=== PATIENT | female | born 1955 | race Caucasian/White ===

== ENCOUNTER → 2017-01-17 | Outpatient (CLI) | payer OTHER ==
[~2017-01-17] MED LIST: 'TENORMIN50 MG PO; BAYER ASPIRIN C81 MG PO; CORDROL20 MG PO; CYMBALTA PO; LEVAQUIN750 MG PO; NEXIUM40 MG PO; PERCOCET 325 MG1 TA6 PO; PRAVACHOL10 MG; PROTONIX20 MG PO; TESSALON PERLE200 MG PO; VICODIN 5/500 505 MG PO; VICODIN 500 MG-1 TAB PO; ZETIA10 MG PO; ZITHROMAX250 MG PO; ZOFRAN ODT4 MG SL
== END | disposition home or self-care (01) ==
LOC: RAD 14:31
DX: M25.551 Pain in right hip (principal)

== ENCOUNTER → 2017-03-27 | Outpatient (CLI) | payer OTHER ==
[2017-03-27 11:55] LABS: HEMATOCRIT 41.5 % (37.0-47.0); HEMOGLOBIN 13.9 g/dl (12.0-16.0); LYMPH # 1.1 10*3/uL (1.3-4.4); LYMPH % 21.5 % (27.0-41.0); MEAN CELL VOLUME 89.6 fl (81.0-99.0); MEAN CORPUSCULAR HGB CONC 33.5 g/dl (33.0-37.0); MEAN PLATELET VOLUME 8.9 fl (9.6-12.3); MONO # 0.4 10*3/uL (0.1-1.0); MONO % 8.3 % (3.0-9.0); NEUT # 3.7 10*3/uL (2.3-7.9); PLATELET COUNT AUTOMATED 267 10*3/uL (130-400); RED BLOOD COUNT 4.63 10*6/uL (4.10-5.10); RED CELL DISTRI WIDTH 12.4 % (0-14.5); WHITE BLOOD COUNT 5.3 10*3/uL (4.8-10.8)
[2017-03-27 12:25] LABS: ALBUMIN 4.1 gm/dl (3.1-4.5); ALKALINE PHOSPHATASE 82 U/L (45-117); BUN 15 mg/dl (7-24); CHLORIDE 107 mmol/L (98-107); CHOLESTEROL 288 mg/dL (<200); FREE T4 0.81 ng/dl (0.76-1.46); HDL CHOLESTEROL 95 mg/dl (40-60); LDL CHOLESTEROL 168 mg/dL (9-159); POTASSIUM 4.2 mmol/L (3.5-5.1); SGOT/AST 19 IU/L (3-35); SGPT/ALT 31 U/L (12-78); SODIUM 141 mmol/L (136-145); TOTAL PROTEIN 7.6 gm/dL (6.4-8.2); TRIGLYCERIDES 126 mg/dl (<150); VLDL CHOLESTEROL 25 mg/dL (6-40)
[2017-03-27 12:45] LABS: VITAMIN D, 25-HYDROXY 36.7 ng/mL (30-100)
== END | disposition home or self-care (01) ==
LOC: LAB 11:30
PROVIDERS: Internal Medicine
DX: Z13.220 Encounter for screening for lipoid disorders (principal); Z13.21 Encounter for screening for nutritional disorder; Z13.1 Encounter for screening for diabetes mellitus; G47.411 Narcolepsy with cataplexy; R53.81 Other malaise; E55.9 Vitamin D deficiency, unspecified; E78.00 Pure hypercholesterolemia, unspecified

== ENCOUNTER → 2017-04-07 | Outpatient (CLI) | payer OTHER | END | disposition home or self-care (01) | LOC: CT 08:45 | DX: R91.8 Other nonspecific abnormal finding of lung field (principal); Z85.528 Personal history of other malignant neoplasm of kidney; Z90.710 Acquired absence of both cervix and uterus; Z90.5 Acquired absence of kidney ==

== ENCOUNTER → 2017-06-09 | Outpatient (CLI) | payer OTHER | LOC: MAMMO 06-01 08:00 | DX: Z12.31 Encounter for screening mammogram for malignant neoplasm of breast (principal) ==

== ENCOUNTER → 2018-03-25 | Outpatient (CLI) | payer OTHER ==
[2018-03-25 14:37] LABS: CREATININE 0.92 mg/dL (0.55-1.02)
== END | disposition home or self-care (01) ==
LOC: LAB 13:53
PROVIDERS: Internal Medicine
DX: C64.9 Malignant neoplasm of unspecified kidney, except renal pelvis (principal)

== ENCOUNTER → 2018-03-26 | Outpatient (CLI) | payer OTHER | END | disposition home or self-care (01) | LOC: CT 01:38 | DX: C64.9 Malignant neoplasm of unspecified kidney, except renal pelvis (principal) ==

== ENCOUNTER → 2018-09-30 | Outpatient (CLI) | payer OTHER ==
[~2018-09-30] MED LIST changes: +KEFLEX500 M1 PO
== END | disposition home or self-care (01) ==
LOC: MAMMO 12:55
DX: Z13.9 Encounter for screening, unspecified (principal); Z12.31 Encounter for screening mammogram for malignant neoplasm of breast; R92.8 Other abnormal and inconclusive findings on diagnostic imaging of breast; M85.89 Other specified disorders of bone density and structure, multiple sites; Z90.710 Acquired absence of both cervix and uterus

== ENCOUNTER → 2018-11-03 | Outpatient (CLI) | payer OTHER | END | disposition home or self-care (01) | LOC: RAD 13:53 | DX: M47.817 Spondylosis without myelopathy or radiculopathy, lumbosacral region (principal) ==

== ENCOUNTER 2019-03-14 12:02 | Emergency (ER) | payer OTHER, MEDICAID ==
[~2019-03-14] VITALS: Ht 172.7 cm; Wt 72.1 kg
[2019-03-14 12:04] VITALS: BP 154/80
== END 2019-03-14 13:56 | disposition home or self-care (01) ==
LOC: ED 12:02
DX: S62.92XA Unspecified fracture of left hand, initial encounter for closed fracture (principal); S80.212A Abrasion, left knee, initial encounter; Z79.899 Other long term (current) drug therapy; Z90.710 Acquired absence of both cervix and uterus; Z79.82 Long term (current) use of aspirin; W01.198A Fall on same level from slipping, tripping and stumbling with subsequent striking against other object, initial encounter; Y93.01 Activity, walking, marching and hiking; Y92.89 Other specified places as the place of occurrence of the external cause; Y99.9 Unspecified external cause status

== ENCOUNTER → 2019-04-26 | Outpatient (CLI) | payer OTHER, MEDICAID ==
[2019-04-26 10:21] LABS: HEMATOCRIT 37.8 % (37.0-47.0); HEMOGLOBIN 12.9 g/dl (12.0-16.0); LYMPH # 1.3 10*3/uL (1.3-4.4); LYMPH % 26.9 % (27.0-41.0); MEAN CELL VOLUME 90.2 fl (81.0-99.0); MEAN CORPUSCULAR HGB 30.8 pg (27.0-31.0); MEAN CORPUSCULAR HGB CONC 34.1 g/dl (33.0-37.0); MEAN PLATELET VOLUME 9.1 fl (9.6-12.3); MONO # 0.3 10*3/uL (0.1-1.0); MONO % 7.1 % (3.0-9.0); NEUT # 3.2 10*3/uL (2.3-7.9); NEUT % 65.8 % (47.0-73.0); PLATELET COUNT AUTOMATED 250 10*3/uL (130-400); RED BLOOD COUNT 4.19 10*6/uL (4.10-5.10); RED CELL DISTRI WIDTH 12.1 % (0-14.5); WHITE BLOOD COUNT 4.8 10*3/uL (4.8-10.8)
[2019-04-26 11:01] LABS: ALKALINE PHOSPHATASE 64 U/L (45-117); BUN 23 mg/dl (7-24); CHLORIDE 105 mmol/L (98-107); CHOLESTEROL 241 mg/dL (<200); CREATININE 0.96 mg/dL (0.55-1.02); FREE T4 0.69 ng/dl (0.76-1.46); HDL CHOLESTEROL 86 mg/dl (40-60); LDL CHOLESTEROL 129 mg/dL (9-159); SGOT/AST 16 IU/L (3-35); SGPT/ALT 30 U/L (12-78); SODIUM 139 mmol/L (136-145); TOTAL PROTEIN 7.2 gm/dL (6.4-8.2); TRIGLYCERIDES 132 mg/dl (<150); VLDL CHOLESTEROL 26 mg/dL (6-40)
[2019-04-26 11:07] LABS: VITAMIN D, 25-HYDROXY 39.2 ng/mL (30-100)
== END | disposition home or self-care (01) ==
LOC: LAB 09:53
PROVIDERS: Internal Medicine
DX: Z13.1 Encounter for screening for diabetes mellitus (principal); G47.419 Narcolepsy without cataplexy; I10 Essential (primary) hypertension; E78.2 Mixed hyperlipidemia; E55.9 Vitamin D deficiency, unspecified

== ENCOUNTER → 2019-07-21 | Outpatient (CLI) | payer OTHER, MEDICAID | END | disposition home or self-care (01) | LOC: RAD 11:15 | DX: M19.042 Primary osteoarthritis, left hand (principal) ==

== ENCOUNTER → 2019-11-02 | Outpatient (CLI) | payer MEDICARE | END | disposition home or self-care (01) | LOC: MAMMO 14:30 | DX: Z12.31 Encounter for screening mammogram for malignant neoplasm of breast (principal) ==

== ENCOUNTER 2020-03-16 07:14 | Emergency (ER) | payer MEDICARE ==
[~2020-03-16] VITALS: Ht 172.7 cm; Wt 73.9 kg
[2020-03-16 07:23] VITALS: BP 150/51
[2020-03-16] MEDS ORDERED: VOLTAREN100 GM T (11:38)
[2020-03-16] MEDS ORDERED: TYLENOL325 M1 PO (11:38)
[2020-03-16] MEDS ORDERED: NAPROSYN500 MG PO (11:38)
== END 2020-03-16 11:45 | disposition home or self-care (01) ==
LOC: ED 07:14
DX: S32.10XA Unspecified fracture of sacrum, initial encounter for closed fracture (principal); X58.XXXA Exposure to other specified factors, initial encounter; Y93.89 Activity, other specified; Y92.89 Other specified places as the place of occurrence of the external cause; Y99.8 Other external cause status

== ENCOUNTER → 2020-03-17 | Outpatient (CLI) | payer MEDICARE ==
[~2020-03-17] MED LIST changes: +NAPROSYN500 MG PO; +TYLENOL325 M1 PO; +VOLTAREN100 GM T
[2020-03-17 08:19] LABS: BASO % 0.2 % (0.0-1.0); EOS % 0.3 % (1.0-4.0); HEMATOCRIT 36.2 % (37.0-47.0); LYMPH # 1.5 10*3/uL (1.3-4.4); LYMPH % 24.5 % (27.0-41.0); MEAN CELL VOLUME 90.7 fl (81.0-99.0); MEAN CORPUSCULAR HGB 29.8 pg (27.0-31.0); MEAN CORPUSCULAR HGB CONC 32.9 g/dl (33.0-37.0); MEAN PLATELET VOLUME 8.8 fl (9.6-12.3); MONO # 0.5 10*3/uL (0.1-1.0); MONO % 7.8 % (3.0-9.0); NEUT # 3.9 10*3/uL (2.3-7.9); NEUT % 66.5 % (47.0-73.0); PLATELET COUNT AUTOMATED 300 10*3/uL (130-400); RED BLOOD COUNT 3.99 10*6/uL (4.10-5.10); RED CELL DISTRI WIDTH 12.7 % (0-14.5); WHITE BLOOD COUNT 5.9 10*3/uL (4.8-10.8)
[2020-03-17 08:34] LABS: ALBUMIN 3.6 gm/dl (3.1-4.5); BUN 20 mg/dl (7-24); CHLORIDE 105 mmol/L (98-107); CREATININE 0.84 mg/dL (0.55-1.02); POTASSIUM 4.1 mmol/L (3.5-5.1); SODIUM 138 mmol/L (136-145)
== END | disposition home or self-care (01) ==
LOC: LAB 07:32
PROVIDERS: ATTEND Internal Medicine Nephrology
DX: E87.6 Hypokalemia (principal); C64.9 Malignant neoplasm of unspecified kidney, except renal pelvis

== ENCOUNTER → 2020-03-19 | Outpatient (CLI) | payer MEDICARE | END | disposition home or self-care (01) | LOC: LAB 01:03 → CT 01:03 | PROVIDERS: ATTEND Internal Medicine Nephrology | DX: C64.9 Malignant neoplasm of unspecified kidney, except renal pelvis (principal); Z98.890 Other specified postprocedural states ==

== ENCOUNTER → 2020-04-09 | Outpatient (CLI) | payer MEDICARE | END | disposition home or self-care (01) | LOC: MRI 10:36 | PROVIDERS: ATTEND Internal Medicine | DX: M75.101 Unspecified rotator cuff tear or rupture of right shoulder, not specified as traumatic (principal); M19.011 Primary osteoarthritis, right shoulder; M77.8 Other enthesopathies, not elsewhere classified; M25.411 Effusion, right shoulder ==

== ENCOUNTER → 2020-06-19 | Outpatient (CLI) | payer MEDICARE | END | disposition home or self-care (01) | LOC: RAD 14:37 | PROVIDERS: ATTEND Internal Medicine | DX: J44.9 Chronic obstructive pulmonary disease, unspecified (principal) ==

== ENCOUNTER → 2020-06-20 | Outpatient (CLI) | payer MEDICARE | END | disposition home or self-care (01) | LOC: COVID19 13:04 | PROVIDERS: ATTEND Internal Medicine | DX: Z20.828 Contact with and (suspected) exposure to other viral communicable diseases (principal); R05 Cough ==

== ENCOUNTER → 2020-09-25 | Outpatient (CLI) | payer MEDICARE ==
[2020-09-25 11:17] LABS: HEMATOCRIT 38.1 % (37.0-47.0); LYMPH # 1.4 10*3/uL (1.3-4.4); LYMPH % 30.8 % (27.0-41.0); MEAN CELL VOLUME 94.3 fl (81.0-99.0); MEAN CORPUSCULAR HGB 31.4 pg (27.0-31.0); MEAN CORPUSCULAR HGB CONC 33.3 g/dl (33.0-37.0); MEAN PLATELET VOLUME 8.8 fl (9.6-12.3); MONO # 0.3 10*3/uL (0.1-1.0); MONO % 6.9 % (3.0-9.0); NEUT # 2.9 10*3/uL (2.3-7.9); NEUT % 61.9 % (47.0-73.0); PLATELET COUNT AUTOMATED 235 10*3/uL (130-400); RED BLOOD COUNT 4.04 10*6/uL (4.10-5.10); RED CELL DISTRI WIDTH 12.8 % (0-14.5); WHITE BLOOD COUNT 4.6 10*3/uL (4.8-10.8)
[2020-09-25 11:51] LABS: ALBUMIN 3.6 gm/dl (3.1-4.5); ALKALINE PHOSPHATASE 58 U/L (45-117); BUN 16 mg/dl (7-24); CHLORIDE 107 mmol/L (98-107); CHOLESTEROL 280 mg/dL (<200); FREE T4 0.73 ng/dl (0.76-1.46); HDL CHOLESTEROL 104 mg/dl (40-60); LDL CHOLESTEROL 153 mg/dL (9-159); POTASSIUM 3.8 mmol/L (3.5-5.1); SGOT/AST 14 IU/L (3-35); SGPT/ALT 28 U/L (12-78); SODIUM 142 mmol/L (136-145); TOTAL PROTEIN 6.7 gm/dL (6.4-8.2); TRIGLYCERIDES 113 mg/dl (<150); VLDL CHOLESTEROL 23 mg/dL (6-40)
[2020-09-25 11:56] LABS: THYROID STIM HORMONE (HS) 0.811 uIU/ml (0.358-4.75)
[2020-09-25 12:32] LABS: VITAMIN D, 25-HYDROXY 47.2 ng/mL (30-100)
== END | disposition home or self-care (01) ==
LOC: LAB 10:38
PROVIDERS: ATTEND Internal Medicine
DX: Z00.01 Encounter for general adult medical examination with abnormal findings (principal); I10 Essential (primary) hypertension; E78.2 Mixed hyperlipidemia; E55.9 Vitamin D deficiency, unspecified

== ENCOUNTER → 2020-12-31 | Outpatient (CLI) | payer MEDICARE | END | disposition home or self-care (01) | LOC: MAMMO 12-17 14:00 | PROVIDERS: ATTEND Internal Medicine | DX: Z12.31 Encounter for screening mammogram for malignant neoplasm of breast (principal); N64.89 Other specified disorders of breast ==

== ENCOUNTER → 2021-02-19 | Outpatient (CLI) | payer MEDICARE ==
[2021-02-19 14:02] LABS: BASO % 0.2 % (0.0-1.0); HEMATOCRIT 37.5 % (37.0-47.0); LYMPH # 1.2 10*3/uL (1.3-4.4); LYMPH % 21.3 % (27.0-41.0); MEAN CELL VOLUME 93.1 fl (81.0-99.0); MEAN CORPUSCULAR HGB CONC 33.3 g/dl (33.0-37.0); MEAN PLATELET VOLUME 9.1 fl (9.6-12.3); MONO # 0.4 10*3/uL (0.1-1.0); MONO % 7.4 % (3.0-9.0); NEUT # 3.8 10*3/uL (2.3-7.9); NEUT % 70.7 % (47.0-73.0); PLATELET COUNT AUTOMATED 281 10*3/uL (130-400); RED BLOOD COUNT 4.03 10*6/uL (4.10-5.10); RED CELL DISTRI WIDTH 12.7 % (0-14.5); WHITE BLOOD COUNT 5.4 10*3/uL (4.8-10.8)
[2021-02-19 14:16] LABS: ACT PARTIAL THROMBO TIME 24.4 SECONDS (20.0-32.1)
== END | disposition home or self-care (01) ==
LOC: LAB 13:35
PROVIDERS: ATTEND Internal Medicine
DX: N93.9 Abnormal uterine and vaginal bleeding, unspecified (principal); D68.8 Other specified coagulation defects

== ENCOUNTER 2021-04-27 13:03 | Emergency (ER) | payer MEDICARE ==
[~2021-04-27] VITALS: Ht 172.7 cm; Wt 73.5 kg
[2021-04-27 13:23] VITALS: BP 142/71
[2021-04-27] MEDS ORDERED: MEDROL DOSEPAK4 MG PO (14:15)
== END 2021-04-27 14:38 | disposition home or self-care (01) ==
LOC: ED 13:03
DX: J30.81 Allergic rhinitis due to animal (cat) (dog) hair and dander (principal)

== ENCOUNTER → 2021-10-18 | Outpatient (CLI) | payer MEDICARE ==
[~2021-10-18] MED LIST changes: +MEDROL DOSEPAK4 MG PO
[2021-10-18 10:47] LABS: HEMATOCRIT 39.7 % (37.0-47.0); LYMPH # 1.7 10*3/uL (1.3-4.4); LYMPH % 38.3 % (27.0-41.0); MEAN CELL VOLUME 89.6 fl (81.0-99.0); MEAN CORPUSCULAR HGB 30.2 pg (27.0-31.0); MEAN CORPUSCULAR HGB CONC 33.8 g/dl (33.0-37.0); MEAN PLATELET VOLUME 9.1 fl (9.6-12.3); MONO # 0.4 10*3/uL (0.1-1.0); MONO % 9.5 % (3.0-9.0); NEUT # 2.3 10*3/uL (2.3-7.9); PLATELET COUNT AUTOMATED 256 10*3/uL (130-400); RED BLOOD COUNT 4.43 10*6/uL (4.10-5.10); RED CELL DISTRI WIDTH 11.8 % (0-14.5); WHITE BLOOD COUNT 4.4 10*3/uL (4.8-10.8)
[2021-10-18 11:04] LABS: ALKALINE PHOSPHATASE 77 U/L (45-117); BUN 15 mg/dl (7-24); CHLORIDE 104 mmol/L (98-107); CHOLESTEROL 236 mg/dL (<200); CREATININE 0.91 mg/dL (0.55-1.02); FREE T4 0.73 ng/dl (0.76-1.46); LDL CHOLESTEROL 110 mg/dL (9-159); SGOT/AST 21 IU/L (3-35); SGPT/ALT 29 U/L (12-78); SODIUM 139 mmol/L (136-145); T3 UPTAKE 34 % (31-39); TOTAL PROTEIN 7.4 gm/dL (6.4-8.2); TRIGLYCERIDES 178 mg/dl (<150)
[2021-10-18 12:08] LABS: VITAMIN D, 25-HYDROXY 48.4 ng/mL (30-100)
== END | disposition home or self-care (01) ==
LOC: LAB 10:23
PROVIDERS: ATTEND Internal Medicine
DX: Z13.1 Encounter for screening for diabetes mellitus (principal); Z13.89 Encounter for screening for other disorder; E55.9 Vitamin D deficiency, unspecified; I10 Essential (primary) hypertension; E78.2 Mixed hyperlipidemia

== ENCOUNTER → 2022-02-18 | Outpatient (CLI) | payer MEDICARE | END | disposition home or self-care (01) | LOC: RAD 01-30 14:00 | PROVIDERS: ATTEND Internal Medicine | DX: Z13.820 Encounter for screening for osteoporosis (principal); Z78.0 Asymptomatic menopausal state ==

== ENCOUNTER → 2022-05-05 | Outpatient (CLI) | payer MEDICARE ==
[2022-05-05 10:18] LABS: HEMATOCRIT 36.9 % (37.0-47.0); LYMPH # 1.6 10*3/uL (1.3-4.4); LYMPH % 33.1 % (27.0-41.0); MEAN CELL VOLUME 92.3 fl (81.0-99.0); MEAN CORPUSCULAR HGB CONC 33.6 g/dl (33.0-37.0); MEAN PLATELET VOLUME 8.9 fl (9.6-12.3); MONO # 0.4 10*3/uL (0.1-1.0); MONO % 7.4 % (3.0-9.0); NEUT # 2.9 10*3/uL (2.3-7.9); NEUT % 59.3 % (47.0-73.0); PLATELET COUNT AUTOMATED 244 10*3/uL (130-400); RED CELL DISTRI WIDTH 12.2 % (0-14.5); WHITE BLOOD COUNT 4.9 10*3/uL (4.8-10.8)
[2022-05-05 10:21] LABS: BILIRUBIN Negative (Negative); BLOOD 1+ (Negative); CLARITY Clear (Clear); COLOR Yellow (Yellow); GLUCOSE Negative (Negative); KETONE Negative (Negative); LEUKO ESTERASE 2+ (Negative); NITRITE Negative (Negative); UROBILINOGEN 0.2 E.U./dl (0.0-1.0)
[2022-05-05 10:43] LABS: BUN 16 mg/dl (7-24); CHLORIDE 108 mmol/L (98-107); POTASSIUM 3.8 mmol/L (3.5-5.1); SODIUM 140 mmol/L (136-145)
[2022-05-05 10:44] LABS: URINE CREATININE RANDOM 69.6 mg/dL
[2022-05-05 11:09] LABS: BACTERIA TRACE; WBC 16-20 wbc/hpf (0-5)
== END | disposition home or self-care (01) ==
LOC: LAB 09:52
PROVIDERS: ATTEND Internal Medicine Nephrology
DX: C64.9 Malignant neoplasm of unspecified kidney, except renal pelvis (principal); E87.6 Hypokalemia

== ENCOUNTER → 2022-06-03 | Outpatient (CLI) | payer MEDICARE | END | disposition home or self-care (01) | LOC: CT 10:57 | PROVIDERS: ATTEND Internal Medicine Nephrology | DX: C64.9 Malignant neoplasm of unspecified kidney, except renal pelvis (principal); Z90.5 Acquired absence of kidney ==

== ENCOUNTER → 2022-07-21 | Outpatient (CLI) | payer MEDICARE | END | disposition home or self-care (01) | LOC: MAMMO 04:02 | PROVIDERS: ATTEND Internal Medicine | DX: Z12.31 Encounter for screening mammogram for malignant neoplasm of breast (principal) ==

== ENCOUNTER → 2022-09-25 | Outpatient (CLI) | payer MEDICARE | END | disposition home or self-care (01) | LOC: US 15:00 | PROVIDERS: ATTEND Internal Medicine | DX: R60.0 Localized edema (principal) ==

== ENCOUNTER → 2022-10-13 | Outpatient (CLI) | payer MEDICARE ==
[~2022-10-13] MED LIST changes: +ASPIRIN CHILDRE81 MG PO; +DULOXETINE HCL60 MG PO; +FUROSEMIDE40 MG PO; +HYDROCHLOROTH12.5 M2 PO; +LIPITOR20 MG PO; +MELOXICAM7.5 MG PO; +METOPROLOL SUC100 M1 PO; +NORVASC5 MG PO; +ONDANSETRON HYDR8 MG PO; +OXYCODONE-ACET1 EACH PO; +PRAVASTATIN SOD80 MG PO; +ROPINIROLE HYDRO1 MG PO; +TENORMIN100 MG PO
[2022-10-13 10:00] LABS: HEMATOCRIT 36.7 % (37.0-47.0); LYMPH # 1.6 10*3/uL (1.3-4.4); LYMPH % 33.1 % (27.0-41.0); MEAN CELL VOLUME 88.4 fl (81.0-99.0); MEAN CORPUSCULAR HGB 29.4 pg (27.0-31.0); MEAN CORPUSCULAR HGB CONC 33.2 g/dl (33.0-37.0); MONO # 0.4 10*3/uL (0.1-1.0); MONO % 8.3 % (3.0-9.0); NEUT # 2.8 10*3/uL (2.3-7.9); NEUT % 58.4 % (47.0-73.0); PLATELET COUNT AUTOMATED 231 10*3/uL (130-400); RED BLOOD COUNT 4.15 10*6/uL (4.10-5.10); RED CELL DISTRI WIDTH 12.3 % (0-14.5); WHITE BLOOD COUNT 4.8 10*3/uL (4.8-10.8)
[2022-10-13 10:53] LABS: ALKALINE PHOSPHATASE 60 U/L (46-116); BUN 15 mg/dl (9-23); CHLORIDE 105 mmol/L (98-107); CHOLESTEROL 220 mg/dL (<200); LDL CHOLESTEROL 124 mg/dL (9-159); SGPT/ALT 16 U/L (10-49); T3 UPTAKE 22.1 % (22.4-36.7); THYROID STIM HORMONE (HS) 1.552 uIU/ml (0.550-4.780); THYROXINE (T4) TOTAL 3.8 ug/dl (4.5-10.9); TOTAL PROTEIN 6.3 gm/dL (6.0-8.0); TRIGLYCERIDES 145 mg/dl (<150)
[2022-10-14 12:07] LABS: CCP ANTIBODIES IGG/IGA 2 units (0-19)
[2022-10-14 13:06] LABS: ANTI-DSDNA ANTIBODIES 1 IU/mL (0-9)
[2022-10-14 14:08] LABS: ANTI-SMOOTH MUSCLE ANTIBODY 6 Units (0-19)
== END | disposition home or self-care (01) ==
LOC: LAB 09:34
PROVIDERS: ATTEND Internal Medicine
DX: I12.9 Hypertensive chronic kidney disease with stage 1 through stage 4 chronic kidney disease, or unspecified chronic kidney disease (principal); N18.31 Chronic kidney disease, stage 3a; R60.0 Localized edema; M81.0 Age-related osteoporosis without current pathological fracture; G47.33 Obstructive sleep apnea (adult) (pediatric); M79.7 Fibromyalgia; E78.2 Mixed hyperlipidemia; G89.4 Chronic pain syndrome; M17.0 Bilateral primary osteoarthritis of knee; M16.0 Bilateral primary osteoarthritis of hip; K44.9 Diaphragmatic hernia without obstruction or gangrene; M54.50 Low back pain, unspecified; J45.20 Mild intermittent asthma, uncomplicated

== ENCOUNTER → 2023-02-06 | Outpatient (CLI) | payer OTHER | END | disposition home or self-care (01) | LOC: RAD 14:16 | PROVIDERS: ATTEND Internal Medicine | DX: M19.042 Primary osteoarthritis, left hand (principal); M19.041 Primary osteoarthritis, right hand; R22.31 Localized swelling, mass and lump, right upper limb; R22.32 Localized swelling, mass and lump, left upper limb ==

== ENCOUNTER → 2023-04-17 | Outpatient (CLI) | payer OTHER ==
[2023-04-17 10:08] LABS: HEMATOCRIT 39.3 % (37.0-47.0); LYMPH # 1.4 10*3/uL (1.3-4.4); LYMPH % 19.7 % (27.0-41.0); MEAN CELL VOLUME 90.3 fl (81.0-99.0); MEAN CORPUSCULAR HGB 29.4 pg (27.0-31.0); MEAN CORPUSCULAR HGB CONC 32.6 g/dl (33.0-37.0); MEAN PLATELET VOLUME 8.7 fl (9.6-12.3); MONO # 0.5 10*3/uL (0.1-1.0); MONO % 7.1 % (3.0-9.0); NEUT # 5.1 10*3/uL (2.3-7.9); NEUT % 72.9 % (47.0-73.0); PLATELET COUNT AUTOMATED 321 10*3/uL (130-400); RED BLOOD COUNT 4.35 10*6/uL (4.10-5.10); RED CELL DISTRI WIDTH 13.1 % (0-14.5); WHITE BLOOD COUNT 6.9 10*3/uL (4.8-10.8)
[2023-04-17 10:11] LABS: BILIRUBIN Negative (Negative); BLOOD 1+ (Negative); CLARITY Clear (Clear); COLOR Yellow (Yellow); GLUCOSE Negative (Negative); KETONE Negative (Negative); LEUKO ESTERASE 2+ (Negative); NITRITE Negative (Negative); PH 5.5 (4.5-8.0); SPECIFIC GRAVITY 1.015 (1.001-1.030); UROBILINOGEN 0.2 E.U./dl (0.0-1.0)
[2023-04-17 10:16] LABS: URINE CREATININE RANDOM 80.88 mg/dL
[2023-04-17 10:28] LABS: BUN 11 mg/dl (9-23); CHLORIDE 107 mmol/L (98-107); POTASSIUM 4.5 mmol/L (3.4-5.1)
[2023-04-17 11:03] LABS: BACTERIA 2+; EPITHELIAL CELLS 16-20; WBC 21-30 wbc/hpf (0-5)
== END | disposition home or self-care (01) ==
LOC: LAB 09:17
PROVIDERS: ATTEND Internal Medicine Nephrology
DX: C64.9 Malignant neoplasm of unspecified kidney, except renal pelvis (principal); E87.6 Hypokalemia

== ENCOUNTER → 2023-05-01 | Outpatient (CLI) | payer OTHER ==
[2023-05-01 14:58] LABS: BILIRUBIN Negative (Negative); BLOOD 1+ (Negative); CLARITY Clear (Clear); COLOR Yellow (Yellow); GLUCOSE Negative (Negative); KETONE Negative (Negative); LEUKO ESTERASE 2+ (Negative); NITRITE Negative (Negative); PH 5.5 (4.5-8.0); SPECIFIC GRAVITY 1.015 (1.001-1.030); UROBILINOGEN 0.2 E.U./dl (0.0-1.0)
[2023-05-01 15:24] LABS: BACTERIA 1+; MUCOUS 1+; WBC 16-20 wbc/hpf (0-5)
== END | disposition home or self-care (01) ==
LOC: LAB 14:27
PROVIDERS: ATTEND Nurse Practitioner Family
DX: C64.9 Malignant neoplasm of unspecified kidney, except renal pelvis (principal); Z79.899 Other long term (current) drug therapy

== ENCOUNTER → 2023-06-24 | Outpatient (CLI) | payer OTHER | END | disposition home or self-care (01) | LOC: RAD 12:27 | PROVIDERS: ATTEND Internal Medicine | DX: J44.9 Chronic obstructive pulmonary disease, unspecified (principal); J06.9 Acute upper respiratory infection, unspecified ==

== ENCOUNTER → 2023-12-10 | Outpatient (CLI) | payer OTHER ==
[2023-12-10 08:22] LABS: CHOLESTEROL 175 mg/dL (<200); LDL CHOLESTEROL 72 mg/dL (9-159); TRIGLYCERIDES 91 mg/dl (<150)
== END | disposition home or self-care (01) ==
LOC: LAB 07:03
PROVIDERS: ATTEND Internal Medicine Cardiovascular Disease
DX: I10 Essential (primary) hypertension (principal); I25.10 Atherosclerotic heart disease of native coronary artery without angina pectoris

== ENCOUNTER → 2024-04-13 | Outpatient (CLI) | payer OTHER ==
[2024-04-13 08:33] LABS: BASO % 0.1 % (0.0-1.0); EOS % 0.1 % (1.0-4.0); HEMATOCRIT 37.9 % (37.0-47.0); LYMPH # 1.1 10*3/uL (1.3-4.4); LYMPH % 11.9 % (27.0-41.0); MEAN CELL VOLUME 92.7 fl (81.0-99.0); MEAN CORPUSCULAR HGB 30.6 pg (27.0-31.0); MEAN PLATELET VOLUME 8.8 fl (9.6-12.3); MONO # 0.7 10*3/uL (0.1-1.0); NEUT # 7.4 10*3/uL (2.3-7.9); NEUT % 80.1 % (47.0-73.0); PLATELET COUNT AUTOMATED 273 10*3/uL (130-400); RED BLOOD COUNT 4.09 10*6/uL (4.10-5.10); RED CELL DISTRI WIDTH 13.1 % (0-14.5); WHITE BLOOD COUNT 9.2 10*3/uL (4.8-10.8)
[2024-04-13 09:36] LABS: ALKALINE PHOSPHATASE 83 U/L (46-116); BUN 10 mg/dl (9-23); CHLORIDE 107 mmol/L (98-107); CHOLESTEROL 180 mg/dL (<200); FREE T4 0.97 ng/dl (0.89-1.76); LDL CHOLESTEROL 85 mg/dL (9-159); SGPT/ALT 36 U/L (5-49); TOTAL PROTEIN 6.7 gm/dL (6.0-8.0); TRIGLYCERIDES 110 mg/dl (<150)
[2024-04-13 09:52] LABS: VITAMIN D, 25-HYDROXY 63.5 ng/mL (30-100)
== END | disposition home or self-care (01) ==
LOC: LAB 07:38
PROVIDERS: ATTEND Internal Medicine
DX: I10 Essential (primary) hypertension (principal); E78.2 Mixed hyperlipidemia; R53.83 Other fatigue; E55.9 Vitamin D deficiency, unspecified; E53.9 Vitamin B deficiency, unspecified

== ENCOUNTER → 2024-04-14 | Outpatient (CLI) | payer OTHER ==
[2024-04-14 11:37] LABS: BASO % 0.1 % (0.0-1.0); EOS % 0.1 % (1.0-4.0); HEMATOCRIT 35.5 % (37.0-47.0); LYMPH # 1.1 10*3/uL (1.3-4.4); LYMPH % 10.7 % (27.0-41.0); MEAN CELL VOLUME 90.3 fl (81.0-99.0); MEAN CORPUSCULAR HGB 30.5 pg (27.0-31.0); MEAN CORPUSCULAR HGB CONC 33.8 g/dl (33.0-37.0); MEAN PLATELET VOLUME 8.6 fl (9.6-12.3); MONO # 0.6 10*3/uL (0.1-1.0); NEUT # 8.3 10*3/uL (2.3-7.9); NEUT % 82.5 % (47.0-73.0); PLATELET COUNT AUTOMATED 292 10*3/uL (130-400); RED BLOOD COUNT 3.93 10*6/uL (4.10-5.10)
[2024-04-14 11:53] LABS: URINE CREATININE RANDOM 188.37 mg/dL
[2024-04-14 12:05] LABS: BUN 12 mg/dl (9-23); CHLORIDE 105 mmol/L (98-107); POTASSIUM 3.5 mmol/L (3.4-5.1)
== END | disposition home or self-care (01) ==
LOC: LAB 11:02
PROVIDERS: ATTEND Nurse Practitioner Family
DX: C64.9 Malignant neoplasm of unspecified kidney, except renal pelvis (principal); E55.9 Vitamin D deficiency, unspecified; Z79.899 Other long term (current) drug therapy

== ENCOUNTER → 2024-04-22 | Outpatient (CLI) | payer OTHER ==
[~2024-04-22] MED LIST changes: +IOHEXOL 300 MG/ML 100 ML VIAL IV ONE; +IOHEXOL 300 MG/ML 100 ML VIAL ONE
== END | disposition home or self-care (01) ==
LOC: CT 04-18 01:44
PROVIDERS: ATTEND Nurse Practitioner Family
DX: C64.9 Malignant neoplasm of unspecified kidney, except renal pelvis (principal); Z90.710 Acquired absence of both cervix and uterus

== ENCOUNTER → 2024-05-13 | Outpatient (CLI) | payer OTHER, MEDICAID ==
[~2024-05-13] MED LIST changes: -IOHEXOL 300 MG/ML 100 ML VIAL IV ONE; -IOHEXOL 300 MG/ML 100 ML VIAL ONE
== END | disposition home or self-care (01) ==
LOC: RAD 04-15 01:29
PROVIDERS: ATTEND Internal Medicine
DX: Z13.820 Encounter for screening for osteoporosis (principal); Z78.0 Asymptomatic menopausal state

== ENCOUNTER 2024-07-22 11:07 | Emergency (ER) | payer OTHER, MEDICAID ==
[~2024-07-22] VITALS: Ht 170.1 cm; Wt 74.8 kg
[2024-07-22 11:16] VITALS: BP 174/80
[2024-07-22] MEDS ORDERED: DERMABOND 1 EA APPL T ONE (11:44)
== END 2024-07-22 12:00 | disposition home or self-care (01) ==
LOC: ED 11:07
DX: S01.81XA Laceration without foreign body of other part of head, initial encounter (principal); I10 Essential (primary) hypertension; E78.00 Pure hypercholesterolemia, unspecified; Z90.710 Acquired absence of both cervix and uterus; Z98.890 Other specified postprocedural states; W22.8XXA Striking against or struck by other objects, initial encounter; Y93.89 Activity, other specified; Y92.89 Other specified places as the place of occurrence of the external cause; Y99.8 Other external cause status

== ENCOUNTER 2025-01-15 17:12 | Emergency (ER) | payer OTHER ==
[~2025-01-15] VITALS: Ht 170.1 cm; Wt 74.8 kg
[2025-01-15 17:30] VITALS: BP 150/63
[2025-01-15] MEDS ORDERED: PREDNISONE20 M1 PO (17:37)
[2025-01-15] MEDS ORDERED: CLOBETASOL PROPIONATE 30 GM TUBE T ONE (17:40)
== END 2025-01-15 17:57 | disposition home or self-care (01) ==
LOC: ED 17:12
DX: L23.7 Allergic contact dermatitis due to plants, except food (principal); Z79.899 Other long term (current) drug therapy; Z79.82 Long term (current) use of aspirin; Z90.711 Acquired absence of uterus with remaining cervical stump